=== PATIENT | female | born 1940 | race African-American/Black ===

== ENCOUNTER 2022-07-06 11:28 | Emergency (ER) | payer MEDICARE ==
[~2022-07-06] VITALS: Ht 160 cm; Wt 70.0 kg
[2022-07-06] MEDS ORDERED: ONDA4TAB50 PO (11:56)
[2022-07-06] MEDS: ONDANSETRON HCL 4MG TABLET PO ONE ×2 (12:30→12:53)
[2022-07-06 14:42] VITALS: BP 131/74
== END 2022-07-06 14:46 | disposition home or self-care (01) ==
LOC: ER 11:28
DX: R11.2 Nausea with vomiting, unspecified (principal); I10 Essential (primary) hypertension; J45.909 Unspecified asthma, uncomplicated
CPT/HCPCS: 93005; 99283; Q0162